=== PATIENT | male | born 1935 | race Caucasian/White ===

== ENCOUNTER → 2022-02-06 | Emergency (ER) | payer OTHER ==
[~2022-02-06] MED LIST: IBUPROFEN 200 MG TAB PO ONE
--- OUTSIDE RECORDS SUMMARY | 2022-02-06 12:46 | XMS REPORT | Continuity of Care Document ---
:1935 Author Organization [facility] t Address [address] [place] [address] Care Team Providers Name Role Phone PAULO TORRES Primary Care Physician Unavailable PAULO TORRES Attending Clinician Unavailable Wilbert ONOFRE, Marcio Hair Attending Clinician [phone] Martinez BORGES, Kayli Attending Clinician HERMINIO Attending Clinician Unavailable Alejandro Attending Clinician Unavailable Caesar Attending Clinician Unavailable ELIZABETH HERMOSILLO Attending Clinician Unavailable REGINALDO CARMICHAEL Attending Clinician Unavailable NGUYEN DO Attending Clinician Unavailable Paulo Torres Attending Clinician Unavailable PAULO TORRES Attending Clinician Unavailable Braden Do Attending Clinician HERMINIO Admitting Clinician Unavailable Alejandro Admitting Clinician Unavailable Caesar Admitting Clinician Unavailable OLAMIDE HERMOSILLO Admitting Clinician Unavailable PAULO TORRES Admitting Clinician Unavailable Braden Do Admitting Clinician Payers Payer Name Policy Type Policy Number Effective Date Expiration Date S shayne [facility] [id number] 2021 (MEDICARE 00:00:00 REPLACEMENT/ADVANTA GE - PPO) [employer] (MEDICARE [id number] REPLACEMENT/ADVANTA GE - PPO) Problems Condition Condition Condition Status Onset Resolution Last Treating Co mments Source Name Details Category Date Date Treatment Clinician Date Constipati Constipati Problem Active 2021-0 M [facility] on on 06-24 da 00:00: Medical 00 Group Epigastric Epigastric Problem Active 2021-0 M [facility] pain Pain 06-24 da 00:00: Medical 00 Group 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, stenosis, 0-14 st right right 00:00: Hospita 00 l Neoplasm Neoplasm Problem Active [place] [facility] Impacted Impacted Problem Active [facility] [facility] cerumen [facility] Acute Acute Problem Active [place] upper Upper da respirator Respirator Me dical y y Group infection Infection Upper Upper Problem Active [place] respirator Respirator da y y Medical infection Infection Grou p Acute Acute Problem Active [facility] bronchitis [facility] Onychia of Onychia of Problem Active M [facility] toe [facility] Paronychia Paronychia Problem Active M [facility] toe [facility] Derangemen Derangemen Problem Active M [facility] t of knee t of Knee [facility] Knee pain Knee Pain Problem Active [facility] Olecranon Olecranon Problem Active [facility] bursitis [facility]itis [facility] Pneumonia Pneumonia Problem Resolve 2017-01-06 Memoria (disorder) (disorder) d 04:01:20 l Resolved [place] Problem 01/06/2017 [facility] Hyperchole Hyperchol Problem Active 2017-01-06 Memoria sterolemia esterolemi 04:01:20 l (disorder) az Marinelli n (disorder) Active Problem 01/06/2017 [facility] Kidney Kidney Problem Active 2017-01-06 Gwyn tu stone stone 04:01:20 l (disorder) (disorder) He rmann Active Problem 01/06/2017 [facility] History of Past Illness Condition Condition Condition Status Onset Resolution Last Treating Co mments Source Name Details Category Date Date Treatment Clinician Date Encounter Encounter Problem 2016-042017-01-06 2017-01-06 Memoria for for 0-02 04:01:20 04:01:20 l screening screening 05:00: Herm jp for for 00 malignant malignant neoplasm neoplasm of colon of colon 01/04/2017 01/06/2017 [facility] Allergies, Adverse Reactions, Alerts Allergy Allergy Status Severity Reaction(s) Onset Inactive Treating Comm ents Source Name Type Date Date Clinician Penicill Propensi Active Other (See Unknown M ethodi ins ty to Comments) 12-03 st adverse 00:00: Hospita reaction 00 l s to drug penicill penicill Active Memori a ins ins l Addy Family History Family Member Diagnosis Comments Start Date Stop Date Source Natural father Aneurysm [facility] Natural mother Heart disease [facility] Social History Social Habit Start Date Stop Date Quantity Comments Source Alcohol intake 2022-01-08 2022-01-08 Current drinker [facility] dist 00:00:00 00:00:00 of alcohol Hospital (finding) Sex Assigned At [birth year] M Islam 00:00:00 00:00:00 Hospital Smoking Status Start Date Stop Date Source Never smoked tobacco [facility] Medications Ordered Filled Start Stop Current Ordering Indication Dosage Frequency Signature Comments Components Source Medication Medication Date Date Medication? Clinician (SIG) Name Name aspirin 2021-04 Yes 81mg QD Take 81 mg Meth alexa (ECOTRIN) 0-[address] 81 MG 14:00: daily. Hospita enteric 28 l coated tablet atorvastati 2021-04 Yes 20mg QD Take 20 mg Methodi n (LIPITOR) 0-[address] 20 mg 14:00: daily. Hospita tablet 28 Default OP l ins furosemide 2021-04 Yes 20mg Q.5D Take 20 mg M ethodi (LASIX) 20 0-[address] mg tablet 14:00: (two) Hospita 28 times a l day. nitroglycer 2021-[address] 0.4 M ethodi in 0-[address] (NITROSTAT) 14:00: the tongue Hospita 0.4 MG SL 28 every 5 l tablet (five) minutes as needed for chest pain. vit A/vit 2021-04 Yes Take by Metho di C/vit 0-[address] E/zinc/maral 14:00: AREDS 2 Hos vik er (ICAPS 28 (B&L) l AREDS ORAL) clopidogreL 2020-04 No [id number] 75mg QD Take 1 Methodi (PLAVIX) 75 2-27 03-28 9100 tablet (75 s t mg tablet 00:00: 04:59 mg total) Ho spita 00 :00 by mouth l daily for 90 days. clopidogreL 2020-04 No [id number] 75mg QD Take 1 Methodi (PLAVIX) 75 2-27 12-27 9100 tablet (75 s t mg tablet 00:00: 00:00 mg total) Ho spita 00 :00 by mouth l daily for 90 days. clopidogreL 2020-04- No [id number] 75mg QD Take 1 Methodi (PLAVIX) 75 2-22 12-27 9100 tablet (75 s t mg tablet 00:00: 00:00 mg total) Ho spita 00 :00 by mouth l daily for 90 days. clopidogreL 2020- No 75mg QD Take 1 Met hodi (PLAVIX) 75 9-20 12-20 tablet (75 s t mg tablet 00:00: 05:59 mg total) Ho spita 00 :00 by mouth l daily for 90 days. [facility] [place] [place] 2016-04 No 1,000 mL, Memoria Medication 0-02 Soln-IV, l 20:26: IV, Once, Addy 00 first dose 01/04/17 15:26:00 CDT, stop date 01/04/17 15:26:00 CDT [facility] [place] [place] 2016-04 No 1,000 mL, Memoria Medication 0-02 Soln-IV, l 20:26: IV, Once, first dose 01/04/17 15:26:00 CDT, stop date 01/04/17 15:26:00 CDT [place] 2016-04 No 10 mL, Gwyn tu Flush 0-02 Soln, IV l 20:14: Push, As Indicated PRN for flush, first dose 01/04/17 15:14:00 CDT LR 1,000 mL 2016-04 No 1,000 mL, M emoria 0-02 IV, 75 l 20:14: mL/hr, start date 01/04/17 15:14:00 CDT Saline [place] 2016-04 No 10 mL, Gwyn tu Flush 0-02 Soln, IV l 20:14: Push, As Indicated PRN for flush, first dose 01/04/17 15:14:00 CDT LR 1,000 mL 2016-04 No 1,000 mL, M emoria 0-02 IV, 75 l 20:14: mL/hr, start date 01/04/17 15:14:00 CDT propofol 2016-04 No 30 mg = 3 Gwyn tu 0-02 mL, l 19:52: Emulsion, IV, Once, first dose 01/04/17 14:52:00 CDT, stop date 01/04/17 14:52:00 CDT lidocaine 2016-04 No 2 mL, Memoria 0-02 Injection, l 19:52: IV, Once, first dose 01/04/17 14:52:00 CDT, stop date 01/04/17 14:52:00 CDT propofol 2016-04 No 30 mg = 3 Gwyn tu 0-02 mL, l 19:52: Emulsion, IV, Once, first dose 01/04/17 14:52:00 CDT, stop date 01/04/17 14:52:00 CDT lidocaine 2016-04 No 2 mL, Memoria 0-02 Injection, l 19:52: IV, Once, first dose 01/04/17 14:52:00 CDT, stop date 01/04/17 14:52:00 CDT midazolam 2016-04 No 2 mg = 2 Gwyn tu 0-02 mL, l 19:50: Injection, [place] 00 IV, Once, first dose 01/04/17 14:50:00 CDT, stop date 01/04/17 14:50:00 CDT fentaNYL 2016-04 No 100 mcg = Gwyn tu 0-02 2 mL, l 19:50: Injection, [place] 00 IV, Once, first dose 01/04/17 14:50:00 CDT, stop date 01/04/17 14:50:00 CDT midazolam 2016-04 No 2 mg = 2 Gwyn tu 0-02 mL, l 19:50: Injection, [place] 00 IV, Once, first dose 01/04/17 14:50:00 CDT, stop date 01/04/17 14:50:00 CDT fentaNYL 2016-04 No 100 mcg = Gwyn ut 0-02 2 mL, l 19:50: Injection, Addy 00 IV, Once, first dose 01/04/17 14:50:00 CDT, stop date 01/04/17 14:50:00 CDT Lidocaine 2016-04 Yes 0.2 mL, Memor ia 2% 0.2 mL 0-02 Injection, l IV Start 18:08: [facility] us, Once PRN for other (see comment), first dose 01/04/17 13:08:00 CDT LR 1,000 mL 2016-04 No 1,000 mL, M emoria 0-02 IV, 30 l 18:08: mL/hr, start date 01/04/17 13:08:00 CDT Lidocaine 2016-04 Yes 0.2 mL, Memor ia 2% 0.2 mL 0-02 Injection, l IV Start 18:08: Subcutaneo Her mae [[place]] 00 us, Once PRN for other (see comment), first dose 01/04/17 13:08:00 CDT LR 1,000 mL 2016-04 No 1,000 mL, M emoria 0-02 IV, 30 l 18:08: mL/hr, [place] 00 start date 01/04/17 13:08:00 CDT Fish Oil Yes 1,000 mg = Mem oria 500 mg oral 12-25 2 caps, l capsule 19:51: Oral, [place] 00 Daily, Instructed to stop 1 week prior to DOS, Supplement atorvastati Yes 20 mg = 1 M emoria n 20 mg 12-25 tabs, l oral tablet 19:51: Oral, Soraya nn 00 Daily, Cholestero l Fish Oil Yes 1,000 mg = Mem oria 500 mg oral 12-25 2 caps, l capsule 19:51: Oral, [place] 00 Daily, Instructed to stop 1 week prior to DOS, Supplement atorvastati Yes 20 mg = 1 M emoria n 20 mg 12-25 tabs, l oral tablet 19:51: Oral, Soraya nn 00 Daily, Cholestero l atorvastati atorvastati No atorvastat [place] n 20 mg n 20 mg in 20 mg da tablet TAKE tablet TAKE tablet Medical 1 TABLET BY 1 TABLET BY TAKE 1 Group MOUTH EVERY MOUTH EVERY TABLET BY DAY DAY MOUTH EVERY DAY clopidogrel clopidogrel No clopidogre [place] 75 mg 75 mg l 75 mg da tablet tablet tablet Medical Group mupirocin 2 mupirocin 2 No mupirocin [place] % topical % topical 2 % da ointment ointment topical Medi nella APPLY TO APPLY TO ointment Ayana up AFFECTED AFFECTED APPLY TO AREA TWICE AREA TWICE AFFECTED A DAY. A DAY. AREA TWICE A DAY. nitroglycer nitroglycer No nitroglyce [place] in 0.4 mg in 0.4 mg rin 0.4 mg da sublingual sublingual sublingual Medical tablet ONE tablet ONE tablet ONE Group TABLET TABLET TABLET UNDER UNDER UNDER TONGUE TONGUE TONGUE NEEDED FOR NEEDED FOR NEEDED FOR CHEST PAIN CHEST PAIN CHEST PAIN pantoprazol pantoprazol No pantoprazo [place] e 40 mg e 40 mg le 40 mg da tablet,manfred tablet,manfred tablet,del Medical yed release yed release ayed G roup TAKE 1 TAKE 1 release TABLET TABLET TAKE 1 EVERY DAY EVERY DAY TABLET BY ORAL BY ORAL EVERY DAY ROUTE. ROUTE. BY ORAL ROUTE. polyethylen polyethylen No polyethyle [place] e glycol e glycol ne glycol da 3350 17 3350 17 3350 17 Medica l gram/dose gram/dose gram/dose Group oral powder oral powder oral MIX 1 MIX 1 powder MIX CAPFUL WITH CAPFUL WITH 1 CAPFUL 8 OZ OF 8 OZ OF WITH 8 OZ WATER DAILY WATER DAILY OF WATER UNTIL STOOL UNTIL STOOL DAILY IS SOFT IS SOFT UNTIL STOOL IS SOFT luigiafine terbinafine No 1 Q1D terbinafin [place] HCl 250 mg HCl 250 mg e HCl 250 da tablet Take tablet Take mg tablet Medical 1 tablet 1 tablet Take 1 Group every day every day tablet by oral by oral every day route at route at by oral bedtime for bedtime for route at 30 days. 30 days. bedtime for 30 days. Immunizations Ordered Immunization Filled Immunization Date Status Commen ts Source Name Name influenza, seasonal, influenza, 2013-12-28 Completed Vinnie mabry injectable seasonal, 00:00:00 Medical Group injectable Vital Signs Vital Name Observation Time Observation Value Comments Source BP Diastolic 2021-10-09 00:00:00 69 mm[Hg] [facility] Height 2021-10-09 00:00:00 71 [in_i] [facility] BMI (Body Mass 2021-10-09 00:00:00 21.2 kg/m2 [facility]) Group BP Systolic 2021-10-09 00:00:00 123 mm[Hg] [facility] Body Weight 2021-10-09 00:00:00 2432 [oz_av] [facility] BP Diastolic 2021-10-02 00:00:00 73 mm[Hg] [facility] Height 2021-10-02 00:00:00 71 [in_i] [facility] BMI (Body Mass 2021-10-02 00:00:00 21.5 kg/m2 [facility]) Group BP Systolic 2021-10-02 00:00:00 133 mm[Hg] [facility] Body Weight 2021-10-02 00:00:00 154 [lb_av] [facility] BP Diastolic 2021-06-20 00:00:00 65 mm[Hg] [facility] Height 2021-06-20 00:00:00 71 [in_i] [facility] BMI (Body Mass 2021-06-20 00:00:00 22.3 kg/m2 [facility]) Group BP Systolic 2021-06-20 00:00:00 134 mm[Hg] [facility] Body Weight 2021-06-20 00:00:00 2560 [oz_av] [facility] BP Diastolic 2021-05-29 00:00:00 84 mm[Hg] [facility] BP Systolic 2021-05-29 00:00:00 141 mm[Hg] [facility] Body Weight 2021-05-29 00:00:00 184 [lb_av] [facility] BP Diastolic 2020-02-15 00:00:00 79 mm[Hg] [facility] Height 2020-02-15 00:00:00 71 [in_i] [facility] BMI (Body Mass 2020-02-15 00:00:00 24.3 kg/m2 [facility] BP Systolic 2020-02-15 00:00:00 123 mm[Hg] [facility] Body Weight 2020-02-15 00:00:00 2784 [oz_av] [facility] BP Diastolic 2019-02-09 00:00:00 72 mm[Hg] [facility] Height 2019-02-09 00:00:00 71 [in_i] [facility] BMI (Body Mass 2019-02-09 00:00:00 23.2 kg/m2 [facility] BP Systolic 2019-02-09 00:00:00 116 mm[Hg] [facility] Body Weight 2019-02-09 00:00:00 166 [lb_av] [facility] BP Diastolic 2019-01-17 00:00:00 72 mm[Hg] [facility] Height 2019-01-17 00:00:00 71 [in_i] [facility] BMI (Body Mass 2019-01-17 00:00:00 23.2 kg/m2 [facility] BP Systolic 2019-01-17 00:00:00 116 mm[Hg] [facility] Body Weight 2019-01-17 00:00:00 2657.6 [oz_av] [facility] BP Diastolic 2018-12-15 00:00:00 78 mm[Hg] [facility] Height 2018-12-15 00:00:00 71 [in_i] [facility] BMI (Body Mass 2018-12-15 00:00:00 21.4 kg/m2 [facility] BP Systolic 2018-12-15 00:00:00 118 mm[Hg] [facility] Body Weight 2018-12-15 00:00:00 2457.6 [oz_av] [facility] BP Diastolic 2018-09-14 00:00:00 65 mm[Hg] [facility] Height 2018-09-14 00:00:00 71 [in_i] [facility] BMI (Body Mass 2018-09-14 00:00:00 23.9 kg/m2 [facility] Group BP Systolic 2018-09-14 00:00:00 120 mm[Hg] [facility] Body Weight 2018-09-14 00:00:00 2740.8 [oz_av] [facility] BP Diastolic 2018-08-23 00:00:00 70 mm[Hg] [facility] Height 2018-08-23 00:00:00 71 [in_i] [facility] BMI (Body Mass 2018-08-23 00:00:00 24 kg/m2 [facility] BP Systolic 2018-08-23 00:00:00 117 mm[Hg] [facility] Body Weight 2018-08-23 00:00:00 2750.4 [oz_av] [facility] BP Diastolic 2018-08-19 00:00:00 68 mm[Hg] [facility] Height 2018-08-19 00:00:00 71 [in_i] [facility] BMI (Body Mass 2018-08-19 00:00:00 23.4 kg/m2 [facility] BP Systolic 2018-08-19 00:00:00 126 mm[Hg] [facility] Body Weight 2018-08-19 00:00:00 2688 [oz_av] [facility] Systolic (mm Hg) 2017-01-05 00:17:00 Gwyn Daly Diastolic (mm Hg) 2017-01-05 00:17:00 Mem orial Addy Respitory Rate 2017-01-05 00:17:00 Memori al Addy Respitory Rate 2017-01-04 20:50:00 Memori al [place] Systolic (mm Hg) 2017-01-04 20:50:00 Gwyn rial Addy Diastolic (mm Hg) 2017-01-04 20:50:00 Mem orial [place] Heart Rate 2017-01-04 20:50:00 [facility] [place] Respitory Rate 2017-01-04 20:40:00 Memori al Addy Systolic (mm Hg) 2017-01-04 20:40:00 Gwyn rial Addy Diastolic (mm Hg) 2017-01-04 20:40:00 Mem orial Addy Heart Rate 2017-01-04 20:40:00 [facility] [place] Heart Rate 2017-01-04 20:30:00 [facility] [place] Temperature Oral (F) 2017-01-04 20:10:00 36.5 Sh[facility]ad [facility] Temperature Oral (F) 2017-01-04 18:11:00 36.5 [facility] Height 2017-01-04 18:11:00 185.42 cm [facility] Height 2016-12-25 19:49:00 185.42 cm [facility] Procedures Procedure Date / Time Performing Clinician Source Performed PV TRANSCRANIAL DOPPLER 2021-12-30 22:33:38 [facility] INTRACRANIAL ARTERIES Reginaldo COMPLETE US CAROTID DUPLEX 2021-12-30 20:13:58 [facility] BILATERAL Reginaldo XR, hip, unilateral 2021-05-29 00:00:00 [facility] Carotid Stent Placement 2020-12-03 00:00:00 [facility] CT, upper extremity, w/o 2019-01-17 00:00:00 [facility] su Medical contrast Group COLONOSCOPY FLEXIBLE; 2017-01-04 19:52:00 Hoda Rizoann WITH BIOPSY; SINGLE OR MULTIPLE [id number] (Other)<sup>1</sup> ENT Surgery 2013-04-05 00:00:00 [facility] Colonoscopy 1981-04-05 00:00:00 [facility] Appendectomy 1953-04-05 00:00:00 [facility] Appendectomy 1951-04-05 00:00:00 [facility] Tonsillectomy 1944-04-05 00:00:00 [facility] Penny [facility] Lithotripsy [facility] Plan of Care Planned Activity Planned Date Details Comments Source Future Scheduled Test 2022-01-29 HEPATITIS B VACCINES [facility] 10:49:27 (1 of 3 - 3-dose series) [code = HEPATITIS B VACCINES (1 of 3 - 3-dose series)] Future Scheduled Test 2022-01-29 SHINGLES VACCINES (1 [facility] 10:49:27 of 2) [code = SHINGLES VACCINES (1 of 2)] Future Scheduled Test 2022-01-29 65+ PNEUMOCOCCAL Me [facility] 10:49:27 VACCINE (1 - PCV) [code = 65+ PNEUMOCOCCAL VACCINE (1 - PCV)] Future Scheduled Test 2022-01-29 COVID-19 VACCINE (4 - [facility] 10:49:27 Booster for Moderna series) [code = COVID-19 VACCINE (4 - Booster for Moderna series)] Future Scheduled Test 2022-01-29 INFLUENZA VACCINE [facility] 10:49:27 [code = INFLUENZA VACCINE] Future Appointment 2022-03-19 Herbie Delcid [facility] 13:30:00 [facility]; Group [address], [place] [address] Instructions [facility] Encounters Start End Encounter Admission Attending Care Care Encounter Source Date/Time Date/Time Type Type Clinicians Facility Department ID 2022-01-23 2022-01-23 Outpatient DESTINY TORRES [facility] [id number] [place] 09:14:00 09:14:00 [id number] 2022-01-08 2022-01-08 Telephone Wilbert 1.2.840.1 [id number] Method[facility] 13:45:00 14:15:00 Consult Marcio 70983.1.[address] Reginaldo 3.430.2.7 Hospit a .3.274624 l .8 2021-12-30 2021-12-30 [facility] Martinez Kayli 1.2.840.1 [id number] Method[facility] 14:00:00 23:59:[id number] 3.430.2.7 Hospit a .3.384618 l .8 2021-12-30 2021-12-30 [facility] Kayli Henriquez 1.2.840.1 [id number] [facility] 13:39:21 13:59:[address] 3.430.2.7 Hospit a .3.349363 l .8 2021-12-30 2021-12-30 Travel 1.2.840.1 1.2.338.688 [id number] Methodi 00:00:00 00:00:[address] 3.430.2.7 0.2.7.3.698 Ho spita .3.210159 084.8 l .8 2021-12-30 2021-12-30 Outpatient KAYLI HENRIQUEZ [facility] [id number] [place] 00:00:00 00:00:[address] 2021-12-30 2021-12-30 Outpatient KAYLI HENRIQUEZ [facility] [id number] [place] 00:00:00 00:00:[address] 2021-12-22 2021-12-22 Travel 1.2.840.1 1.2.184.522 [id number] Methodi 00:00:00 00:00:[address] 3.430.2.7 0.2.7.3.698 Ho spita .3.772702 084.8 l .8 2021-10-15 2021-10-15 Outpatient [facility] 77 [place] 02:13:00 02:13:00 RA 0713 [facility] Program 2021-10-09 2021-10-09 Outpatient Ambeaux [facility] [id number] [place] 05:09:00 05:09:00 717 Medical Group 2021-10-09 2021-10-09 Outpatient Ambeaux [facility] [id number] 220 [place] 05:09:00 05:09:00 707 Medical Group 2021-10-09 2021-10-09 Rocky [facility] [place] - [id number] atagor 00:00:00 00:00:00 Discovery kimo Allen PA: [address] [employer] [address], [facility] [address] , Ph. 2021-10-08 2021-10-08 Outpatient Ambeaux [facility] [id number] 220 [place] 10:37:00 10:37:00 706 [facility] 2021-10-02 2021-10-02 Outpatient Ambeaux [facility] [id number] 220 [place] 03:04:00 03:04:00 630 [facility] 2021-10-02 2021-10-02 Outpatient Ambeaux [facility] [id number] 220 [place] 03:04:00 03:04:00 705 [facility] 2021-10-02 2021-10-02 RONDA Delcid [place] - [id number] 0 [place] 00:00:00 00:00:00 MD: Herbie [facility], [facility] [address], [facility] [address] , Ph. 2021-09-29 2021-09-29 Outpatient Ambeaux [facility] [id number] 220 [place] 03:57:00 03:57:00 627 [facility] 2021-09-25 2021-09-25 Outpatient Yan_W [facility]G MMG [id number] 220 [place] 03:09:00 03:09:00 623 [facility] 2021-09-18 2021-09-18 Outpatient Yan_W [facility]G MMG [id number] 220 [place] 08:31:00 08:31:00 616 [facility] 2021-09-09 2021-09-09 Outpatient Yan_W [facility]G MMG [id number] 220 [place] 03:51:00 03:51:00 607 [facility] 2021-07-28 2021-07-28 Telephone Kayli Henriquez 1.2.840.1 [id number] Methodi 00:00:00 00:00:[address] 3.430.2.7 Hospit a .3.514325 l .8 2021-07-03 2021-07-03 Telephone Kayli Henriquez 1.2.840.1 [id number] Method[facility] 12:30:00 13:03:[address] 3.430.2.7 Hospit a .3.526738 l .8 2021-07-03 2021-07-03 Outpatient KAYLI HENRIQUEZ [facility] [id number] [facility] 00:00:00 00:00:[address] 2021-06-28 2021-06-28 Outpatient Ambeaux [facility] [id number] 220 [place] 01:15:00 01:15:00 326 [facility] 2021-06-20 2021-06-20 Outpatient Ambeaux [facility] MMG [id number] 220 [place] 11:20:00 11:20:00 318 da [facility] 2021-06-20 2021-06-20 [place] MMG [place] - [id number] [place] 00:00:00 00:00:00 Discovery kimo Reinoso LOGISTICS TEAM LEAD-C: 600 [facility] [address] , Ph. 2021-05-29 2021-05-29 Outpatient Ambeaux [facility] MMG [id number] 220 [place] 02:47:00 02:47:00 224 [facility] 2021-05-29 2021-05-29 Outpatient Ambeaux MMG MMG [id number] 220 [place] 02:47:00 02:47:00 302 [facility] 2021-05-29 2021-05-29 Sung MMG [place] - [id number] M atagor 00:00:00 00:00:00 Discovery kimo Roque MD: [address] [place] [address] [address], [place] [address] , Ph. 2021-03-31 2021-03-31 Orders Kayli Henriquez 1.2.840.1 [id number] Methodi 00:00:00 00:00:[address] 3.430.2.7 Hospit a .3.206150 l .8 2021-03-26 2021-03-26 Orders Wilbert, 1.2.840.1 [id number] Methodi 00:00:00 00:00:00 Only Marcio 56769.1.[address] Reginaldo 3.430.2.7 Hospit a .3.854995 l .8 2021-03-25 2021-03-25 Telephone Wilbert, 1.2.840.1 [id number] Methodi 14:00:00 16:21:42 Consult Marcio 15350.1.[address] Reginaldo 3.430.2.7 Hospit a .3.528169 l .8 2021-03-25 2021-03-25 Outpatient [facility] [id number] [place] 00:00:00 00:00:[address] 2021-03-22 2021-03-22 Refill Martinez, Kayli 1.2.840.1 [id number] Methodi 00:00:00 00:00:[address] 3.430.2.7 Hospit a .3.489502 l .8 2021-01-16 2021-01-18 Inpatient [facility] [id number] [place] 00:00:00 00:00:00 ELIZABETH [address] 2020-12-27 2020-12-27 Outpatient MARTINEZ, KAYLI [facility] [id number] [place] 00:00:00 00:00:[address] 2020-12-27 2020-12-27 Outpatient MARTINEZ, KAYLI [facility] [id number] [place] 00:00:00 00:00:[address] 2020-12-27 2020-12-27 Outpatient MARTINEZ, KAYLI [facility] [id number] [place] 00:00:00 00:00:[address] 2020-12-23 2020-12-23 Outpatient MARTINEZ, KAYLI [facility] [id number] [place] 00:00:00 00:00:[address] 2020-12-17 2020-12-17 Outpatient KAYLI HENRIQUEZ [facility] [id number] [place] 00:00:00 00:00:[address] 2020-12-04 2020-12-04 Outpatient JANY, [facility] [id number] [place] 00:00:00 00:00:00 REGINALDO [address] [facility] 2020-12-03 2020-12-03 Outpatient [place], [facility] [id number] [place] 00:00:00 00:00:00 NGUYEN 121 Method i 2020-11-29 2020-11-29 Outpatient Melissa, [facility] [id number] [facility] 17:30:00 17:30:00 Paulo 85 2020-08-19 2020-08-19 Outpatient Ambeaux MMG MMG [id number] 210 [place] 02:47:00 02:47:00 517 [facility] 2020-08-19 2020-08-19 Outpatient Ambeaux MMG MMG [id number] 220 [place] 02:47:00 02:47:00 223 [facility] 2020-02-21 2020-02-21 Outpatient Ambeaux MMG MMG [id number] 201 [place] 02:32:00 02:32:00 118 [facility] 2020-02-15 2020-02-15 Outpatient Ambeaux MMG MMG [id number] 201 [place] 12:03:00 12:03:00 117 [facility] 2020-02-15 2020-02-15 Outpatient Ambeaux MMG MMG [id number] 201 [place] 12:03:00 12:03:00 112 [facility] 2020-02-15 2020-02-15 Rocky MMG [place] - [id number] M atagor 00:00:00 00:00:00 Discovery kimo Allen PA: 600 [facility] 201, [place] [address] , Ph. 2020-01-26 2020-01-26 Outpatient Ambeaux MMG MMG [id number] 201 [place] 10:11:00 10:11:00 023 da [facility] 2019-02-09 2019-02-09 Sung [facility] [place] - [id number] M atagor 00:00:00 00:00:00 Discovery kimo Roque MD: [address] [place] [address] - [facility] [address], [place] [address] , Ph. 2019-01-17 2019-01-17 Rocky [facility] [place] - [id number] M atagor 00:00:00 00:00:00 Discovery kimo Allen PA: [address] [place], [place] [address]a - [address], [place] [address] , Ph. 2018-12-15 2018-12-15 Rocky [facility] [place] - [id number] M atagor 00:00:00 00:00:00 Discovery kimo Allen PA: [address] [place], [place] [address] - [address], [place] [address] , Ph. 2018-09-14 2018-09-14 Rocky [facility] [place] - [id number] M atagor 00:00:00 00:00:00 Discovery kimo Allen PA: [address] [place], [place] [address]da - [address], [facility] [place] [address] , Ph. 2018-08-23 2018-08-23 Rocky [facility] [place] - [id number] M atagor 00:00:00 00:00:00 Discovery kimo Allen PA: [address] [place], [place] [address]da - [address], [facility] [place] [address] , Ph. 2018-08-19 2018-08-19 Rocky [facility] [place] - [id number] M atagor 00:00:00 00:00:00 Discovery kimo Allen PA: [address] [place], [place] [address]da - [address], [facility] [place] [address] , Ph. 2017-04-13 2017-04-13 [facility] [id number] [address] 21:12:00 21:12:00 [facility] 2017-03-11 2017-03-11 Outpatient Tayler TORRES, [facility] [id number] [address] 20:59:00 20:59:00 [facility] 2017-01-04 2017-01-04 [id number] 17:44:23 21:50:00 n [place]uz [facility] 2017-01-04 2017-01-04 Observatio nullFlavo [facility] [id number] Memoria 17:44:23 21:50:00 n vanessa MarieeAddy luz [facility] 2017-01-04 2017-01-04 OBS nullFlavo [facility] [id number] Memoria 12:44:23 16:50:00 vanessa Daly 2017-01-04 2017-01-04 Outpatient Hi, [id number] 12:44:23 16:50:00 Braden 8 Results Test Description Test Time Test Comments Results Result Comments Source Urinalysis complete panel - Urine 2018-11-24 10:12:00 Test Item Value Reference Range Interpretation Comme nts Color of Urine by Auto (test code = 43193-4) yellow Appearance of Urine (test code = 5767-9) clear clear Glucose [Presence] in Urine by Automated test strip negative ne gative (test code = 12105-9) Bilirubin.total [Mass/volume] in Urine (test code = negative ne gative 1977-09) Ketones [Mass/volume] in Urine by Automated test strip =1 negative H (test code = 63871-7) Specific gravity of Urine by Automated test strip (test 1.024 1.003-1.030 code = 42245-2) blood urine (test code = blood urine) negative negative pH of Urine (test code = 2756-5) 6.000 5-9 protein urine (UA) (test code = protein urine (UA)) trace ne gative Urobilinogen [Presence] in Urine (test code = 04098-3) =4.0 0.2-1.0 H Nitrite [Presence] in Urine by Test strip (test code = negative negative 5802-4) Leukocyte esterase [Presence] in Urine by Automated negative ne gative test strip (test code = 77292-1) Erythrocytes [#/volume] in Urine by Automated count =1-5 0- 5 (test code = 798-9) Leukocytes [#/area] in Urine sediment by Automated =1-5 0-5 count (test code = 39060-6) Epithelial cells [Presence] in Urine sediment by Light <1 0-5 microscopy (test code = 59142-0) Bacteria identified in Urine by Culture (test code = none detected none detect 630-4) Casts [#/area] in Urine sediment by Automated count none detected n one detect (test code = 37595-0) urine culture added? (test code = urine culture added?) [facility] W Auto Differential panel - [id number] 09:53:00 Test Item Value Reference Range Interpretation Comments white blood count (test code = 6.5 K/uL 4.0-12.3 white blood count) red blood count (test code = red 3.43 M/uL 3.80-5.80 L blood count) hemoglobin (test code = 11.2 g/dL 11.7-17.2 L hemoglobin) hematocrit (test code = 33.2 % 35.0-51.0 L hematocrit) Erythrocyte mean corpuscular 96.8 fL 83-100 volume [Entitic volume] (test code = 84545-8) mean corpuscular hemoglobin (test 32.7 pg 26.8-33.4 code = mean corpuscular hemoglobin) mean corpuscular HGB conc (test 33.7 g/dL 30-35 code = mean corpuscular HGB conc) red cell distribution width (test 12.6 % 12.0-14.0 code = red cell distribution width) platelet count (test code = 186 K/uL 175-450 platelet count) mean platelet volume (test code = 9.1 fL 9.4-12.6 L mean platelet volume) Neutrophils.segmented/100 63.6 % 44.7-82.4 leukocytes in Blood (test code = 44031-1) Ig% (test code = Ig%) 0.3 % 0.0-0.4 lymphocyte% (test code = 22.5 % 10.0-50.0 lymphocyte%) mono % (test code = mono %) 13.1 % 3.9-13.4 eos % (test code = eos %) 0.5 % 0.0-6.4 Basophils/100 leukocytes in 0.0 % 0.2-1.2 L Unspecified specimen (test code = 45513-0) absolute neutrophil count (test 4.14 K/uL 1.78-5.38 code = absolute neutrophil count) Ig# (test code = Ig#) 0.0 K/uL 0.0-0.03 Lymphocytes [#/volume] in 1.5 K/uL 1.32-3.57 Unspecified specimen by Automated count (test code = 48593-9) mono # (test code = mono #) 0.85 K/uL 0.30-0.82 H eos # (test code = eos #) 0.03 K/uL 0.04-0.54 L basophil # (test code = basophil 0.00 K/uL 0.01-0.08 L #) NRBC% (test code = NRBC%) 0 /100 WBC 0-0.2 NRBC# (test code = NRBC#) 0 K/uL [facility], [id number] 09:53:00 NeutrophilsBandLymphocyteAtypical LymphMonocyteEosinophilBasophilPlatelet EstimatePlatelet MorphologyMicrocytosisMataEncompass Health Rehabilitation HospitalPT/[id number] 09:53:00 Test Item Value Reference Range Interpretation Comments prothrombin time (test code = 11.4 seconds 10.3-12.3 prothrombin time) INR in Blood by Coagulation 1.04 assay (test code = 81707-3) [facility] thromb[facility] [id number] 09:53:00 Test Item Value Reference Range Interpretation Comments INR in Blood by Coagulation 34.3 seconds 22.5-37.0 assay (test code = 92639-4) [facility] 2000 panel - Serum or Plasma 2018-11-24 09:53:00 Test Item Value Reference Range Interpretation Comments Glucose [Mass/volume] in Serum or 118 mg/dL 82-115 H Plasma (test code = 2345-7) Urea nitrogen [Mass/volume] in 16 mg/dL 8-23 Serum or Plasma (test code = 3094-0) osmolality calculated, serum (test 274 280-300 L code = osmolality calculated, serum) creatinine (test code = 0.9 mg/dL 0.70-1.20 creatinine) glomerular filtration rate (test >60.00 code = glomerular filtration rate) Urea nitrogen/Creatinine [Mass 17.8 12-20 Ratio] in Serum or Plasma (test code = 3097-3) sodium level (test code = sodium 136 mmol/L 135-145 level) potassium level (test code = 3.8 mmol/L 3.5-5.2 potassium level) chloride level (test code = 99 mmol/L 98-108 chloride level) CO2 (test code = CO2) 25 mmol/L 21-32 anion gap (test code = anion gap) 15.8 mEq/L 12-20 calcium level (test code = calcium 9.2 mg/dL 8.8-10.2 level) total protein (test code = total 7.2 g/dL 6.6-8.7 protein) albumin (test code = albumin) 4.0 g/dL 3.5-5.2 globulin (test code = globulin) 3.2 gm/dL A/G ratio (test code = A/G ratio) 1.3 >1.0 bilirubin,total (test code = 1.0 mg/dL 0.0-1.2 bilirubin,total) AST/SGOT (test code = AST/SGOT) 15 U/L 15-40 Alanine aminotransferase 10 U/L 0-41 [Enzymatic activity/volume] in Serum or Plasma (test code = 1742-6) Alkaline phosphatase [Enzymatic 77 U/L 40-130 activity/volume] in Serum or Plasma (test code = 6768-6) [facility] kinase [Enzymatic activity/volume] in Serum or [id number] 09:53:00 Test Item Value Reference Range Interpretation Comments creatine kinase (test code = creatine 85 U/L 20-200 kinase) [facility] GroupNatriuretic peptide.B prohormone N-Terminal [Mass/volume] in Serum or [id number] 09:53:00 Test Item Value Reference Range Interpretation Comments N-term pro natriuretic peptide 186 pg/mL 0-450 (test code = N-term pro natriuretic peptide) [facility] Group[facility] kinase.MB [Mass/volume] in Serum or Plasma 2018-11-24 09:53:00 Test Item Value Reference Range Interpretation Comments mass creatinine kinase-mb (test 2.7 NG/mL 0.0-3.6 code = mass creatinine kinase-mb) [facility]idianTropoow[facility] I.cardiac [Mass/volume] in [id number] 09:53:00 Test Item Value Reference Range Interpretation Comments cardiac troponin I (test code = cardiac <0.30 0.0-0.5 troponin I) [facility] W Auto Differential panel - [id number] 12:54:00 Test Item Value Reference Range Interpretation Comments white blood count (test code = 5.1 K/uL 4.0-12.3 white blood count) red blood count (test code = red 4.07 M/uL 3.80-5.80 blood count) Hemoglobin [Mass/volume] in Blood 13.2 g/dL 11.67-17.22 (test code = 718-7) hematocrit (test code = hematocrit) 39.6 % 35.0-51.0 Erythrocyte mean corpuscular volume 97.4 fL 78-96 H [Entitic volume] (test code = 67410-3) Erythrocyte mean corpuscular 32.4 pg 26.8-33.4 hemoglobin [Entitic mass] (test code = 39826-1) mean corpuscular HGB conc (test 33.3 g/dL 32.3-36.7 code = mean corpuscular HGB conc) red cell distribution width (test 11.4 % 11.6-15.4 L code = red cell distribution width) Platelets [#/volume] in Blood (test 177 K/uL 115-328 code = 72156-6) Platelet mean volume [Entitic 6.0 fL 8.4-11.8 L volume] in Blood (test code = 26166-0) Neutrophils.band form/100 44.2 % 44.7-82.4 L leukocytes in Blood (test code = 61332-1) Lymphocytes/100 leukocytes in Body 36.3 % 10.0-50.0 fluid (test code = 04639-0) Monocytes/100 leukocytes in Blood 14.8 % 3.9-13.4 H by Automated count (test code = 5905-5) Eosinophils/100 leukocytes in Blood 4.4 % 0.0-6.43 by Automated count (test code = 713-8) Basophils/100 leukocytes in 0.3 % 0.0-0.72 Unspecified specimen (test code = 79214-7) [facility], [id number] 12:54:00 NeutrophilsBandLymphocyteMonocyteEosinophilPlatelet EstimatePlatelet MorphologyDifferential comment-[facility]Com[facility] 2000 panel - Serum or [id number] 12:54:00 Test Item Value Reference Range Interpretation Comments Glucose [Mass/volume] in Serum or 101 mg/dL 82-115 Plasma (test code = 2345-7) Urea nitrogen [Mass/volume] in 21 mg/dL 8-23 Serum or Plasma (test code = 3094-0) Osmolality of Serum or Plasma 284 280-300 (test code = 2692-2) creatinine (test code = 0.9 mg/dL 0.70-1.20 creatinine) glomerular filtration rate (test >60.00 code = glomerular filtration rate) Urea nitrogen/Creatinine [Mass 23.3 12-20 H Ratio] in Serum or Plasma (test code = 3097-3) sodium level (test code = sodium 141 mmol/L 135-145 level) potassium level (test code = 4.1 mmol/L 3.5-5.2 potassium level) chloride level (test code = 104 mmol/L 98-108 chloride level) CO2 (test code = CO2) 23 mmol/L 21-32 anion gap (test code = anion gap) 18.1 mEq/L 12-20 calcium level (test code = calcium 9.1 mg/dL 8.8-10.2 level) total protein (test code = total 6.9 g/dL 6.6-8.7 protein) albumin (test code = albumin) 4.2 g/dL 3.5-5.2 globulin (test code = globulin) 2.7 gm/dL A/G ratio (test code = A/G ratio) 1.6 >1.0 bilirubin,total (test code = 0.8 mg/dL 0.0-1.2 bilirubin,total) AST/SGOT (test code = AST/SGOT) 26 U/L 15-40 Alanine aminotransferase 14 U/L 0-41 [Enzymatic activity/volume] in Serum or Plasma (test code = 1742-6) Alkaline phosphatase [Enzymatic 68 U/L 40-130 activity/volume] in Serum or Plasma (test code = 6768-6) [facility]idianNatriuretic peptide.B prohormone N-Terminal [Mass/volume] in Serum or [id number] 12:54:00 Test Item Value Reference Range Interpretation Comments N-term pro natriuretic peptide (test 78 pg/mL 0-450 code = N-term pro natriuretic peptide) [facility] W Auto Differential panel - [id number] 12:54:00 Test Item Value Reference Range Interpretation Comments white blood count (test code = 5.1 K/uL 4.0-12.3 white blood count) red blood count (test code = red 4.07 M/uL 3.80-5.80 blood count) Hemoglobin [Mass/volume] in Blood 13.2 g/dL 11.67-17.22 (test code = 718-7) hematocrit (test code = hematocrit) 39.6 % 35.0-51.0 Erythrocyte mean corpuscular volume 97.4 fL 78-96 H [Entitic volume] (test code = 16394-9) Erythrocyte mean corpuscular 32.4 pg 26.8-33.4 hemoglobin [Entitic mass] (test code = 77849-9) mean corpuscular HGB conc (test 33.3 g/dL 32.3-36.7 code = mean corpuscular HGB conc) red cell distribution width (test 11.4 % 11.6-15.4 L code = red cell distribution width) Platelets [#/volume] in Blood (test 177 K/uL 115-328 code = 03602-2) Platelet mean volume [Entitic 6.0 fL 8.4-11.8 L volume] in Blood (test code = 67067-3) Neutrophils.band form/100 44.2 % 44.7-82.4 L leukocytes in Blood (test code = 86263-4) Lymphocytes/100 leukocytes in Body 36.3 % 10.0-50.0 fluid (test code = 76561-6) Monocytes/100 leukocytes in Blood 14.8 % 3.9-13.4 H by Automated count (test code = 5905-5) Eosinophils/100 leukocytes in Blood 4.4 % 0.0-6.43 by Automated count (test code = 713-8) Basophils/100 leukocytes in 0.3 % 0.0-0.72 Unspecified specimen (test code = 41843-5) [facility], [id number] 12:54:00 NeutrophilsBandLymphocyteMonocyteEosinophilPlatelet EstimatePlatelet MorphologyDifferential comment-[facility]Comprehensive [facility] 2000 panel - Serum or [id number] 12:54:00 Test Item Value Reference Range Interpretation Comments Glucose [Mass/volume] in Serum or 101 mg/dL 82-115 Plasma (test code = 2345-7) Urea nitrogen [Mass/volume] in 21 mg/dL 8-23 Serum or Plasma (test code = 3094-0) Osmolality of Serum or Plasma 284 280-300 (test code = 2692-2) creatinine (test code = 0.9 mg/dL 0.70-1.20 creatinine) glomerular filtration rate (test >60.00 code = glomerular filtration rate) Urea nitrogen/Creatinine [Mass 23.3 12-20 H Ratio] in Serum or Plasma (test code = 3097-3) sodium level (test code = sodium 141 mmol/L 135-145 level) potassium level (test code = 4.1 mmol/L 3.5-5.2 potassium level) chloride level (test code = 104 mmol/L 98-108 chloride level) CO2 (test code = CO2) 23 mmol/L 21-32 anion gap (test code = anion gap) 18.1 mEq/L 12-20 calcium level (test code = calcium 9.1 mg/dL 8.8-10.2 level) total protein (test code = total 6.9 g/dL 6.6-8.7 protein) albumin (test code = albumin) 4.2 g/dL 3.5-5.2 globulin (test code = globulin) 2.7 gm/dL A/G ratio (test code = A/G ratio) 1.6 >1.0 bilirubin,total (test code = 0.8 mg/dL 0.0-1.2 bilirubin,total) AST/SGOT (test code = AST/SGOT) 26 U/L 15-40 Alanine aminotransferase 14 U/L 0-41 [Enzymatic activity/volume] in Serum or Plasma (test code = 1742-6) Alkaline phosphatase [Enzymatic 68 U/L 40-130 activity/volume] in Serum or Plasma (test code = 6768-6) [facility]idianNatriuretic peptide.B prohormone N-Terminal [Mass/volume] in Serum or [id number] 12:54:00 Test Item Value Reference Range Interpretation Comments N-term pro natriuretic peptide (test 78 pg/mL 0-450 code = N-term pro natriuretic peptide) [facility]idianUrinalysis [id number] 22:55:00 Test Item Value Reference Range Interpretation Comments Color (test code = COLOR) Yellow Yellow,Straw,Pl N yellow Clarity (test code = Clear Clear N CLAR) Specific [place] (test 1.013 1.001-1.035 N code = SPGR) pH (test code = PH) 7.0 5.0-9.0 N Ketone (test code = KET) Negative mg/dL Negative N Glucose (test code = Negative mg/dL Negative N GLUCUR) Protein (test code = Negative mg/dL Negative N PROT) Bilirubin (test code = Negative mg/dL Negative N BILI) Occult Blood (test code = Negative Negative N UDOB) Urobilinogen (test code = 0.2 mg/dL 0.2-1.0 N UROB) Nitrite (test code = NIT) Negative Negative N Leuk Esterase (test code Negative Negative N = LEUK) Micros Exam (test code = Not indicated MEXAM) PSA, Medicare [id number] 00:18:00 Test Item Value Reference Range Interpretation Comments PSA (test code = 0.33 ng/mL 0.000-6.220 N (NOTE)Prost ate Specific PSA) Antigen Test Information:The Total PSA method is appro david for use as an aid in th e detection ofprostate canc er when used in conjunc tion with a digital rectal exam inmen age 50 and olde r. The total PSA metho d is also indicated for t heserial measurement of PSA to aid in the prognosi s and management ofpr ostate cancer patients .Elevated PSA concentrati ons can only suggest th e presence of prostatecanc er until biopsy is perfo rmed. PSA concentration c an also be elevatedin ca gn prostatic hyper plasia or inflammatory co nditions of theprostate. PS A is generally not e levated in healthy men or men withnon-prostat ic carcinoma. Comprehensive Metabolic [id number] 00:08:00 Test Item Value Reference Range Interpretation Comments Sodium (test code = 139 mmol/L 135-145 N NA) Potassium (test 4.0 mmol/L 3.5-5.1 N code = K) Chloride (test code 102 mmol/L 98-105 N = CL) Carbon Dioxide 26 mmol/L 22-29 N (test code = CO2) Glucose (test code 90 mg/dL 70-115 N = GLU) Blood Urea Nitrogen 14 mg/dL 8-23 N (test code = BUN) Creatinine (test 0.9 mg/dL 0.7-1.2 N code = CREAT) Calcium (test code 9.1 mg/dL 8.3-10.5 N = CA) Prot Total (test 6.8 g/dL 6.4-8.3 N code = TP) Albumin (test code 4.3 g/dL 3.5-5.2 N = ALB) A/G Ratio (test 1.7 Ratio code = AGRATIO) Globulin (test code 2.5 2.9-3.1 L = GLOB) Bili Total (test 1.0 mg/dL 0.1-0.9 H code = TBIL) Alk Phos (test code 68 U/L 40-129 N = APHOS) AST (test code = 26 U/L 1-40 N AST) ALT (test code = 18 U/L 1-41 N ALT) BUN/Creatinine 15.6 Ratio (test code = BCRATIO) Anion Gap (test 11 mmol/L 7-16 N code = AGAP) Estimated GFR (test >60 eGFR (es timated code = GFR) mL/min/1.73m2 Glomerular Daniel tration Rate) is an est imated value,calculate d from the patient's s vika creatinine usin g the MDRD equation.I t is NOT the patient 's actual GFR. The eGFR provides a more clinicallyusefu l measure of kidn ey disease than se rum creatinine alone.This calculation jm es sex and race into account, if the informationis provided. If th e race is not provided , and the patient isSteph-Cassie can, multiply by 1.2 12. If sex is not prov ided, and thepatient is female, multipl y by 0.742. Results for patients <18 ye ars ofage have not been validated by th e MDRD study and shoul d be interpretedwith caution.eGFR Re sult Interpretation: eGFR > or = 60 is in t he Normal RangeeGF R < 60 may mean kidney diseaseeGFR < 1 5 may mean kidney failureRange s recommended by the National Kidney Foundation,http ://nkd ep.nih.gov Lipid [id number] 00:08:00 Test Item Value Reference Range Interpretation Comments Cholesterol (test 142 mg/dL 0-200 N code = CHOL) Triglycerides (test 64 mg/dL 9-200 N code = TRIG) HDL (test code = 71 mg/dL 40-60 H HDL) Chol/HDL (test code 2.0 Ratio 0.0-5.0 N = CHOLPHDL) LDL, Calculated 58 0-130 N (NOTE)RISK O F HEART (test code = LDLC) DISEASEPu blished by Italian Heart AssociationAnal yte Optimal Boderli ne Increased RiskC HOL <200 200-239 >240TRI G <150 150-199 >200HDL Male: >60 <40HDL Fema le: >60 <50LDL <100 130 -159 >160LDL NEAR OP TIMAL IS 100-129 VLDL (test code = 13 mg/dL 5-40 N VLDL) LDL/HDL (test code = 1 LDLPHDL) CBC with [id number] 21:51:00 Test Item Value Reference Range Interpretation Comments WBC (test code = WBC) 4.5 K/cumm 4.4-10.5 N RBC (test code = RBC) 4.03 M/cumm 4.10-5.70 L Hemoglobin (test code = HGB) 14.0 gm/dL 13.4-17.4 N Hematocrit (test code = HCT) 40.0 % 38.7-52.0 N MCV (test code = MCV) 99.4 fL 80-100 N MCH (test code = MCH) 34.7 pg 27.0-32.5 H MCHC (test code = MCHC) 34.9 g/dL 32.0-37.5 N RDW (test code = RDW) 12.8 % 11.5-14.5 N Platelet Count (test code = 190 K/cumm 140-440 N PLTCT) MPV (test code = MPV) 10.6 fL Diff Method (test code = DIFFM) Auto Neutrophil (test code = NEUT) 47.4 % 36-70 N Lymphocyte (test code = LYMPH) 37.8 % 12-44 N Monocyte (test code = MONO) 10.1 % 0-11 N Eosinophil (test code = EOS) 4.5 % 0-7 N Basophil (test code = BASO) 0.3 % 0-2 N Neutro Abs (test code = ANEUT) 2.1 K/cumm 1.6-7.4 N Lymph Abs (test code = ALYMPH) 1.7 K/cumm 0.5-4.6 N [place] Abs (test code = AMONO) 0.5 K/cumm 0.0-1.2 N Eos Abs (test code = AEOS) 0.20 K/cumm 0.00-0.74 N Baso Abs (test code = ABASO) 0.0 K/cumm 0.00-0.21 N
== END ==
LOC: ER 12:42
DX: Z02.9 Encounter for administrative examinations, unspecified (principal)